=== PATIENT | male | born 1935 | race Hispanic/Latino ===

== ENCOUNTER 2020-07-24 09:22 | Emergency (ER) | payer MEDICARE ==
[2020-07-24 09:52] LABS: BASOPHILS % (AUTO) 0.2 % (0.0-5.0); EOSINOPHILS % (AUTO) 0.9 % (0.0-8.0); HEMATOCRIT 24.4 % (42-54); LYMPHOCYTES % (AUTO) 40.1 % (21.0-51.0); MEAN CORPUSCULAR HGB CONC 33.6 g/dL (32.0-36.0); MEAN CORPUSCULAR VOLUME 95.3 fL (79-99); MONOCYTES % (AUTO) 21.6 % (3.0-13.0); NEUTROPHILS % (AUTO) 33.5 % (40.0-77.0); PLATELET COUNT (AUTO) 368 K/uL (130-400); RED BLOOD CELL COUNT(AUTO) 2.56 MIL/uL (4.50-6.20); RED CELL DISTRIBUTION WIDTH 20.7 % (11.0-15.5); WHITE BLOOD COUNT (AUTO) 8.5 K/uL (4.8-10.8)
[2020-07-24 10:06] LABS: CREATININE 3.2 mg/dL (0.5-1.5); POTASSIUM 3.8 mmol/L (3.5-5.1)
[2020-07-24 10:15] LABS: ALBUMIN 2.8 g/dL (3.5-5.0); BILIRUBIN,TOTAL 0.2 mg/dL (0.2-1.0); TOTAL PROTEIN, SERUM 6.2 g/dL (6.0-8.3)
[2020-07-24 11:41] LABS: APPEARANCE,URINE Clear (CLEAR); BILIRUBIN,URINE Negative (NEGATIVE); COLOR,URINE Yellow (YELLOW); GLUCOSE, URINE (UA) TRACE mg/dL (NEGATIVE); KETONES,URINE Negative (NEGATIVE); LEUKOCYTE ESTERASE ,URINE Negative (NEGATIVE); NITRATE,URINE Negative (NEGATIVE); OCCULT BLOOD,URINE Negative (NEGATIVE); PROTEIN,URINE 300 mg/dL (NEGATIVE)
[2020-07-24 12:06] LABS: AMORPHOUS SEDIMENT,UR Few /LPF (None Seen); BACTERIA,URINE Rare /HPF (None Seen); RBC,URINE 0-1 /HPF (0-1); SQUAMOUS EPITHELIAL CELL,UR Rare /HPF (0-2)
== END 2020-07-24 12:21 | disposition home or self-care (01) ==
LOC: EDH 09:22
DX: K59.09 Other constipation (principal); R51 Headache; E11.22 Type 2 diabetes mellitus with diabetic chronic kidney disease; N18.6 End stage renal disease; Z79.899 Other long term (current) drug therapy
CPT/HCPCS: 36415; 70450; 74176; 80053; 81001; 82150; 83690; 84484; 85025; 93005

== ENCOUNTER 2020-12-23 08:52 | Inpatient (IN) | payer MEDICARE ==
[2020-12-23] MEDS ORDERED: DEXAMETHASONE SOD PHOSPHATE 10MG/ML 1ML VIAL ONE (09:10)
[2020-12-23 09:51] LABS: BASOPHILS % (AUTO) 0.6 % (0.0-5.0); EOSINOPHILS % (AUTO) 1.3 % (0.0-8.0); HEMATOCRIT 23.9 % (42-54); LYMPHOCYTES % (AUTO) 41.3 % (21.0-51.0); MEAN CORPUSCULAR HEMOGLOBIN 29.4 pg (27.0-33.0); MEAN CORPUSCULAR HGB CONC 32.2 g/dL (32.0-36.0); MEAN CORPUSCULAR VOLUME 91.2 fL (79-99); MONOCYTES % (AUTO) 11.8 % (3.0-13.0); NEUTROPHILS % (AUTO) 44.6 % (40.0-77.0); PLATELET COUNT (AUTO) 212 K/uL (130-400); RED BLOOD CELL COUNT(AUTO) 2.62 MIL/uL (4.50-6.20); RED CELL DISTRIBUTION WIDTH 20.5 % (11.0-15.5); WHITE BLOOD COUNT (AUTO) 5.3 K/uL (4.8-10.8)
[2020-12-23 10:14] LABS: BILIRUBIN,TOTAL 0.3 mg/dL (0.2-1.0); POTASSIUM 5.4 mmol/L (3.5-5.1); TOTAL PROTEIN, SERUM 6.5 g/dL (6.0-8.3)
[2020-12-23 11:27] LABS: APPEARANCE,URINE CLEAR (CLEAR); BILIRUBIN,URINE NEGATIVE (NEGATIVE); COLOR,URINE YELLOW (YELLOW); GLUCOSE, URINE (UA) 100 mg/dL (NEGATIVE); KETONES,URINE NEGATIVE (NEGATIVE); LEUKOCYTE ESTERASE ,URINE NEGATIVE (NEGATIVE); NITRATE,URINE NEGATIVE (NEGATIVE); OCCULT BLOOD,URINE SMALL (NEGATIVE); PH,URINE 5.5 (5.0-8.0); PROTEIN,URINE >=300 mg/dL (NEGATIVE); UROBILINOGEN,URINE 0.2 mg/dL (0.2-1.0)
[2020-12-23 11:48] LABS: BACTERIA,URINE Few /HPF (None Seen); RBC,URINE 0-1 /HPF (0-1); WBC,URINE 0-1 /HPF (0-1)
[2020-12-23] MEDS ORDERED: SOLU-MEDROL 125MG VIAL IV SCH (12:15)
[2020-12-23] MEDS ORDERED: ACETAMINOPHEN 325 MG TAB PO PRN ×2 (12:15)
[2020-12-23] MEDS ORDERED: LACTULOSE 20 GM/30 ML UDCUP PO PRN (12:15)
[2020-12-23] MEDS ORDERED: ONDANSETRON 4MG INJ IV PRN (12:15)
[2020-12-23 12:34] LABS: CREATINE KINASE, TOTAL 72 U/L (21-232); MYOGLOBIN 188 ng/mL (10-92); TROPONIN I < 0.04 ng/mL (0.00-0.06)
[2020-12-23 12:43] LABS: INR 1.29 (0.85-1.15); PROTHROMBIN TIME 13.7 SEC (9.6-11.6)
[2020-12-23 12:44] LABS: PARTIAL THROMBOPLASTIN TIME 40.2 SEC (26.3-35.5)
[2020-12-23 12:48] LABS: HEMOGLOBIN A1C 7.2 % (4.0-6.0)
[2020-12-23 12:55] LABS: THYROID STIMULATING HORMONE 4.75 uIU/mL (0.36-3.74)
[2020-12-23] MEDS ORDERED: INSULIN HUMULIN R 100 UNIT/ML 3ML SQ SCH (16:30)
[2020-12-23] MEDS ORDERED: IPRATROPIUM/ALBUTEROL SULFATE 3 ML SOLUTION IH SCH (18:00)
[2020-12-23] MEDS ORDERED: FAMOTIDINE 20MG TAB PO SCH (21:00)
== END 2020-12-23 13:28 | disposition left against medical advice (07) | DRG 193 ==
LOC: EDH 08:52 → EDHIP 12:10
PROVIDERS: ADMIT Family Medicine; ATTEND Family Medicine
DX: J18.9 Pneumonia, unspecified organism (principal); N18.6 End stage renal disease; I24.9 Acute ischemic heart disease, unspecified; Z20.822 Contact with and (suspected) exposure to COVID-19; E11.22 Type 2 diabetes mellitus with diabetic chronic kidney disease; M54.2 Cervicalgia; R91.8 Other nonspecific abnormal finding of lung field; Z53.29 Procedure and treatment not carried out because of patient's decision for other reasons; R06.03 Acute respiratory distress; Z99.2 Dependence on renal dialysis
CPT/HCPCS: 36415; 71045; 80053; 80061; 81001; 82550; 83036; 83874; 83880; 84443; 84484; 85025; 85378; 85610; 85730; 87426; 93005; G0378; J1100; U0003